=== PATIENT | female | born 1970 | race African-American/Black ===

== ENCOUNTER 2019-02-13 05:38 | Inpatient (IN) ==
[2019-02-09 15:45] LABS: Basophils % 0.5 % (0.0-0.8); Eosinophils # 0.2 10*3/uL (0.0-0.87); Hematocrit 33.3 VOL% (35.7-47.0); Hemoglobin 10.5 GM/DL (12.0-16.0); Immature Granulocytes % 0.2 %; Immature Granulocytes Absolute 0.01 #; Lymphocytes # 2.1 10*3/uL (1.4-4.0); Lymphocytes % 34.8 % (21.3-54.2); Mean Corpuscular HGB Conc 31.5 GM/DL (32-36); Mean Corpuscular Volume 85.8 FL (87-102); Mean Platelet Volume 10.9 FL (9.6-12.0); Monocytes % 9.5 % (1.7-12.7); Platelet Count 336 T/CUMM (130-400); Red Blood Count 3.88 MC/CUMM (3.8-5.5); Red Cell Distribution Width 15.9 % (9.3-17.3)
[2019-02-09 15:53] LABS: Apearance,Urine CLEAR (Clear); Bilirubin,Urine Negative (Negative); Blood, Urine Negative (Negative); Glucose,Urine (UA) Negative (Negative); Ketones,Urine Negative (Negative); Mucus,Urine Occasional /LPF (Occasional); Nitrite,Urine Negative (Negative); Protein,Urine Negative; RBC,Urine <1 /HPF (0-4); Squamous Epithelial Cell,Urine Occasional /HPF (0-10); Urine Color Yellow (Yellow); Urine Specific Gravity 1.013 (1.001-1.035); Urine Urobilinogen < 2.0 EU/DL (0.2-1.0); WBC,Urine <1 /HPF (0-6)
[2019-02-09 16:08] LABS: Alanine Aminotransferase 26 U/L (13-56); Albumin 3.7 G/DL (3.4-5.0); Alkaline Phosphatase 78 U/L (45-117); Aspartate Amino Transferase 21 U/L (0-37); Bilirubin,Total < 0.39 MG/DL (0.2-1.0); Blood Urea Nitrogen 13 MG/DL (7-18); Calcium 10.2 MG/DL (8.5-10.1); Estimated Glom Filtration Rate 107 ML/MIN; Glucose 86 MG/DL (74-106); HDL Cholesterol 72 MG/DL (40-60); Osmolality,Calculated 281.1 MOS/KG (273-304); Risk Ratio 2.28; Total Protein 7.6 G/DL (6.4-8.3); Triglycerides 70 MG/DL (2-150)
[2019-02-09 17:25] LABS: HIV Antigen/Antibody Result Nonreactive (Nonreactive)
[2019-02-13] MEDS ORDERED: DIAZEPAM 5 MG TABLET PO ONE (06:00)
[2019-02-13] MEDS ORDERED: FAMOTIDINE 20 MG TABLET PO ONE (06:00)
[2019-02-13] MEDS ORDERED: ACETAMINOPHEN 500 MG TABLET PO ONE (06:00)
[2019-02-13] MEDS ORDERED: LACTATED RINGERS 1,000 ML IV SCH (06:00)
[2019-02-13] MEDS ORDERED: AMPICILLIN/SULBACTAM 3,000 MG in SODIUM CHLORIDE 0.9% 100 ML IV ONE (06:30)
[2019-02-13] MEDS ORDERED: MICROFIBRILLAR COLLAGEN POWDER 1 GM CAN TOP ONE (06:31)
[2019-02-13] MEDS ORDERED: ACETAMINOPHEN 500 MG TABLET ONE (07:11)
[2019-02-13] MEDS ORDERED: FAMOTIDINE 20 MG TABLET ONE (07:11)
[2019-02-13] MEDS ORDERED: DIAZEPAM 5 MG TABLET ONE (07:11)
[2019-02-13] MEDS ORDERED: BUPIVACAINE 0.5% 50 ML VIAL ONE (07:17)
[2019-02-13] MEDS ORDERED: ceFAZolin 2,000 MG in PREMIX 1 EACH IV ONE (07:45)
[2019-02-13] MEDS ORDERED: ceFAZolin 1,000 MG VIAL ONE (07:46)
[2019-02-13 09:07] LABS: Apearance,Urine CLEAR (Clear); Bilirubin,Urine Negative (Negative); Blood, Urine Negative (Negative); Glucose,Urine (UA) Negative (Negative); Ketones,Urine Negative (Negative); Nitrite,Urine Negative (Negative); Protein,Urine Negative; RBC,Urine 1 /HPF (0-4); Squamous Epithelial Cell,Urine Occasional /HPF (0-10); Urine Color Colorless (Yellow); Urine Specific Gravity 1.003 (1.001-1.035); Urine Urobilinogen < 2.0 EU/DL (0.2-1.0); WBC,Urine <1 /HPF (0-6)
[2019-02-13] MEDS ORDERED: DESFLURANE 1 UNIT/15 MINUTE INH ONE (09:08)
[2019-02-13] MEDS ORDERED: SUFentanil 50 MCG/ML AMP ONE (09:08)
[2019-02-13] MEDS ORDERED: PROPOFOL 200 MG/20 ML VIAL IV ONE (09:08)
[2019-02-13] MEDS ORDERED: LIDOCAINE 2% 5 ML VIAL ONE (09:08)
[2019-02-13] MEDS ORDERED: NEOSTIGMINE 10 MG/10 ML VIAL ONE (09:09)
[2019-02-13] MEDS ORDERED: DEXAMETHASONE 4 MG/1 ML VIAL ONE (09:09)
[2019-02-13] MEDS ORDERED: GLYCOPYRROLATE 0.4 MG/2 ML VIAL ONE (09:09)
[2019-02-13] MEDS ORDERED: ROCURONIUM 100 MG/10 ML VIAL IV ONE (09:09)
[2019-02-13] MEDS ORDERED: ONDANSETRON 4 MG/2 ML VIAL ONE (09:09)
[2019-02-13] MEDS ORDERED: ePHEDrine 50 MG/ML AMP ONE (09:09)
[2019-02-13] MEDS ORDERED: LACTATED RINGERS 1,000 ML IV ONE (09:09)
[2019-02-13] MEDS ORDERED: ONDANSETRON 4 MG/2 ML VIAL IV PRN (09:17)
[2019-02-13] MEDS: HYDROmorphone 2 MG/1 ML VIAL IV PRN ×5 (09:19→21:34)
[2019-02-13] MEDS ORDERED: ACETAMINOPHEN 325 MG TABLET PO PRN (10:17)
[2019-02-13] MEDS ORDERED: BENZOCAINE/MENTHOL LOZENGE 18/BOX PO PRN (10:17)
[2019-02-13] MEDS ORDERED: MAGNESIUM HYDROXIDE SUSP 30 ML UDCUP PO PRN (10:17)
[2019-02-13] MEDS: LACTATED RINGERS 1,000 ML IV SCH ×2 (10:34→18:33)
[2019-02-13] MEDS ORDERED: INFLUENZA VIRUS VACCINE 0.5 ML SYRINGE IM ONE (11:55)
[2019-02-13] MEDS: ceFAZolin 1,000 MG in SYRINGE 1 EACH IV SCH ×2 (16:35→23:52)
[2019-02-13 18:26] LABS: Basophils % 0.1 % (0.0-0.8); Hematocrit 31.1 VOL% (35.7-47.0); Hemoglobin 9.8 GM/DL (12.0-16.0); Immature Granulocytes % 1.4 %; Immature Granulocytes Absolute 0.16 #; Lymphocytes # 1.4 10*3/uL (1.4-4.0); Lymphocytes % 11.9 % (21.3-54.2); Mean Corpuscular HGB Conc 31.5 GM/DL (32-36); Mean Corpuscular Volume 85.4 FL (87-102); Mean Platelet Volume 10.3 FL (9.6-12.0); Monocytes % 6.9 % (1.7-12.7); Neutrophils % 79.7 % (38.7-73.9); Platelet Count 272 T/CUMM (130-400); Red Blood Count 3.64 MC/CUMM (3.8-5.5); White Blood Count 11.6 T/CUMM (4-12)
[2019-02-13] MEDS: KETOROLAC 30 MG/1 ML VIAL IV PRN (21:28)
[2019-02-13] MEDS: SIMETHICONE CHEW 80 MG TABLET PO PRN (21:44)
[2019-02-13] MEDS: ONDANSETRON 4 MG/2 ML VIAL IV PRN (23:07)
[2019-02-14 05:53] LABS: Basophils % 0.4 % (0.0-0.8); Eosinophils # 0.1 10*3/uL (0.0-0.87); Eosinophils % 1.2 % (0.00-10.9); Hematocrit 29.5 VOL% (35.7-47.0); Hemoglobin 9.4 GM/DL (12.0-16.0); Immature Granulocytes % 0.4 %; Immature Granulocytes Absolute 0.03 #; Lymphocytes # 1.6 10*3/uL (1.4-4.0); Lymphocytes % 20.6 % (21.3-54.2); Mean Corpuscular HGB Conc 31.9 GM/DL (32-36); Mean Platelet Volume 11.3 FL (9.6-12.0); Monocytes % 12.2 % (1.7-12.7); Neutrophils % 65.2 % (38.7-73.9); Platelet Count 246 T/CUMM (130-400); Red Blood Count 3.51 MC/CUMM (3.8-5.5); Red Cell Distribution Width 15.9 % (9.3-17.3); White Blood Count 7.5 T/CUMM (4-12)
[2019-02-14] MEDS: METOCLOPRAMIDE 10 MG TABLET PO SCH ×3 (07:51→23:10)
[2019-02-14] MEDS: SIMETHICONE CHEW 80 MG TABLET PO PRN ×3 (07:51→22:33)
[2019-02-14] MEDS: IBUPROFEN 800 MG TABLET PO PRN (07:51)
[2019-02-14] MEDS: DOCUSATE SODIUM 100 MG CAPSULE PO PRN ×2 (07:53→19:48)
[2019-02-14] MEDS: FERROUS SULFATE 325 MG TABLET PO SCH ×2 (07:53→16:25)
[2019-02-14] MEDS ORDERED: POTASSIUM CHLORIDE 20 MEQ TABLET PO ONE (09:00)
[2019-02-14] MEDS: ONDANSETRON 4 MG/2 ML VIAL IV PRN (14:00)
[2019-02-14] MEDS: MAGNESIUM HYDROXIDE SUSP 30 ML UDCUP PO SCH ×3 (14:54→22:02)
[2019-02-14] MEDS: KETOROLAC 30 MG/1 ML VIAL IV PRN (19:51)
[2019-02-14] MEDS: BISACODYL 10 MG SUPP RECTAL PRN (22:33)
[2019-02-15] MEDS: ONDANSETRON 4 MG/2 ML VIAL IV PRN ×2 (02:26→18:25)
[2019-02-15] MEDS: KETOROLAC 30 MG/1 ML VIAL IV PRN (02:42)
[2019-02-15] MEDS ORDERED: METOCLOPRAMIDE 10 MG/2 ML VIAL ONE (12:54)
[2019-02-15] MEDS: LACTATED RINGERS 1,000 ML IV SCH ×3 (13:00→21:11)
[2019-02-15] MEDS: METOCLOPRAMIDE 10 MG/2 ML VIAL IV SCH ×2 (13:05→21:13)
[2019-02-15] MEDS ORDERED: PROMETHAZINE 25 MG/1 ML VIAL IM PRN (15:49)
[2019-02-15] MEDS: MEPERIDINE 25 MG/1 ML VIAL IV PRN ×2 (18:17→23:58)
[2019-02-15] MEDS: FERROUS SULFATE 325 MG TABLET PO SCH (19:23)
[2019-02-15] MEDS: MAGNESIUM HYDROXIDE SUSP 30 ML UDCUP PO SCH ×2 (19:23→21:12)
[2019-02-15] MEDS: DOCUSATE SODIUM 100 MG CAPSULE PO PRN (21:13)
[2019-02-15] MEDS: SIMETHICONE CHEW 80 MG TABLET PO PRN (21:13)
[2019-02-15] MEDS: BISACODYL 10 MG SUPP RECTAL PRN (22:22)
[2019-02-16] MEDS: ONDANSETRON 4 MG/2 ML VIAL IV PRN ×2 (03:57→21:52)
[2019-02-16] MEDS: KETOROLAC 30 MG/1 ML VIAL IV PRN (04:34)
[2019-02-16] MEDS: METOCLOPRAMIDE 10 MG/2 ML VIAL IV SCH ×3 (04:37→21:48)
[2019-02-16] MEDS: LACTATED RINGERS 1,000 ML IV SCH (06:02)
[2019-02-16 06:35] LABS: Albumin 2.8 G/DL (3.4-5.0); Bilirubin,Total 0.6 MG/DL (0.2-1.0); Calcium 10.2 MG/DL (8.5-10.1); Osmolality,Calculated 277.4 MOS/KG (273-304)
[2019-02-16] MEDS ORDERED: MAGNESIUM CITRATE 300 ML BOTTLE PO ONE (07:13)
[2019-02-16] MEDS: DEXT 5% LACT RING KCL 20 MEQ 20 MEQ/1,000 ML BAG IV SCH ×2 (08:13→15:56)
[2019-02-16] MEDS: PANTOPRAZOLE 40 MG VIAL IV SCH ×2 (08:48→21:45)
[2019-02-16] MEDS: FERROUS SULFATE 325 MG TABLET PO SCH (08:49)
[2019-02-16] MEDS: DOCUSATE SODIUM 100 MG CAPSULE PO PRN (08:50)
[2019-02-16] MEDS: MAGNESIUM HYDROXIDE SUSP 30 ML UDCUP PO SCH ×2 (08:51→21:59)
[2019-02-16] MEDS ORDERED: hydroCHLOROthiazide 25 MG TABLET PO SCH (17:00)
[2019-02-16] MEDS: SIMETHICONE CHEW 80 MG TABLET PO PRN (22:00)
[2019-02-17] MEDS: DEXT 5% LACT RING KCL 20 MEQ 20 MEQ/1,000 ML BAG IV SCH ×3 (01:51→23:48)
[2019-02-17] MEDS: MEPERIDINE 25 MG/1 ML VIAL IV PRN (04:00)
[2019-02-17] MEDS: METOCLOPRAMIDE 10 MG/2 ML VIAL IV SCH (06:10)
[2019-02-17] MEDS: BISACODYL 10 MG SUPP RECTAL PRN (07:52)
[2019-02-17] MEDS: MAGNESIUM HYDROXIDE SUSP 30 ML UDCUP PO SCH (07:52)
[2019-02-17] MEDS ORDERED: amLODIPine 5 MG TABLET PO SCH (09:00)
[2019-02-17] MEDS: FERROUS SULFATE 325 MG TABLET PO SCH (09:13)
[2019-02-17] MEDS ORDERED: MAGNESIUM CITRATE 300 ML BOTTLE PO ONE (09:13)
[2019-02-17] MEDS ORDERED: hydrALAZINE 20 MG/1 ML VIAL IV PRN (11:36)
[2019-02-17] MEDS ORDERED: amLODIPine 5 MG TABLET PO ONE (11:38)
[2019-02-17 11:50] LABS: Albumin 2.9 G/DL (3.4-5.0); Bilirubin,Total 0.4 MG/DL (0.2-1.0); Calcium 10.8 MG/DL (8.5-10.1); Osmolality,Calculated 272.7 MOS/KG (273-304); Total Protein 7.2 G/DL (6.4-8.3)
[2019-02-17] MEDS: ONDANSETRON 4 MG/2 ML VIAL IV PRN ×2 (13:12→21:05)
[2019-02-17] MEDS ORDERED: MAGNESIUM SULF RIDER 2 GM in PREMIX 1 EACH IV ONE (13:42)
[2019-02-17] MEDS: SIMETHICONE CHEW 80 MG TABLET PO PRN ×2 (14:45→22:29)
[2019-02-17] MEDS: NICOTINE 21 MG/24 HR PATCH TRANSDERM SCH (15:26)
[2019-02-17] MEDS: POTASSIUM CHLORIDE RIDER 10 MEQ in PREMIX 1 EACH IV PRN ×5 (16:29→21:13)
[2019-02-17] MEDS: PANTOPRAZOLE 40 MG VIAL IV SCH (18:30)
[2019-02-17] MEDS: carvediloL 6.25 MG TABLET PO SCH (21:48)
[2019-02-17] MEDS: IBUPROFEN 800 MG TABLET PO PRN (23:55)
[2019-02-18] MEDS: ceFAZolin 2,000 MG in PREMIX 1 EACH IV SCH ×3 (02:43→13:44)
[2019-02-18 05:52] LABS: Basophils % 0.4 % (0.0-0.8); Eosinophils # 0.3 10*3/uL (0.0-0.87); Eosinophils % 3.3 % (0.00-10.9); Hematocrit 35.8 VOL% (35.7-47.0); Hemoglobin 11.4 GM/DL (12.0-16.0); Immature Granulocytes % 0.3 %; Immature Granulocytes Absolute 0.03 #; Lymphocytes # 1.3 10*3/uL (1.4-4.0); Lymphocytes % 12.8 % (21.3-54.2); Mean Corpuscular HGB Conc 31.8 GM/DL (32-36); Mean Corpuscular Volume 82.7 FL (87-102); Mean Platelet Volume 12.1 FL (9.6-12.0); Monocytes % 15.1 % (1.7-12.7); Neutrophils % 68.1 % (38.7-73.9); Platelet Count 312 T/CUMM (130-400); Red Blood Count 4.33 MC/CUMM (3.8-5.5); Red Cell Distribution Width 15.9 % (9.3-17.3); White Blood Count 10.4 T/CUMM (4-12)
[2019-02-18 06:15] LABS: Alanine Aminotransferase 28 U/L (13-56); Albumin 2.8 G/DL (3.4-5.0); Alkaline Phosphatase 77 U/L (45-117); Aspartate Amino Transferase 26 U/L (0-37); Bilirubin,Total < 0.39 MG/DL (0.2-1.0); Blood Urea Nitrogen 10 MG/DL (7-18); Calcium 10.4 MG/DL (8.5-10.1); Estimated Glom Filtration Rate 93 ML/MIN; Glucose 93 MG/DL (74-106); Osmolality,Calculated 271.8 MOS/KG (273-304); Total Protein 7.2 G/DL (6.4-8.3)
[2019-02-18] MEDS: ONDANSETRON 4 MG/2 ML VIAL IV PRN ×2 (07:45→22:11)
[2019-02-18] MEDS: amLODIPine 10 MG TABLET PO SCH (08:29)
[2019-02-18] MEDS: carvediloL 6.25 MG TABLET PO SCH ×2 (08:29→23:13)
[2019-02-18] MEDS: DOCUSATE SODIUM 100 MG CAPSULE PO PRN (08:29)
[2019-02-18] MEDS: hydroCHLOROthiazide 25 MG TABLET PO SCH (08:29)
[2019-02-18] MEDS: FERROUS SULFATE 325 MG TABLET PO SCH (08:31)
[2019-02-18] MEDS ORDERED: POTASSIUM CHLORIDE 10 MEQ TABLET PO SCH (09:00)
[2019-02-18] MEDS: LACTATED RINGERS 1,000 ML IV SCH ×2 (09:01→23:16)
[2019-02-18] MEDS: PANTOPRAZOLE 40 MG VIAL IV SCH (10:03)
[2019-02-18] MEDS: SIMETHICONE CHEW 80 MG TABLET PO PRN (17:17)
[2019-02-19] MEDS: ONDANSETRON 4 MG/2 ML VIAL IV PRN ×2 (08:50→19:54)
[2019-02-19] MEDS: hydroCHLOROthiazide 25 MG TABLET PO SCH (09:15)
[2019-02-19] MEDS: amLODIPine 10 MG TABLET PO SCH (09:15)
[2019-02-19] MEDS: carvediloL 6.25 MG TABLET PO SCH ×2 (09:15→20:15)
[2019-02-19] MEDS: DOCUSATE SODIUM 100 MG CAPSULE PO PRN ×2 (09:15→21:44)
[2019-02-19] MEDS: METOCLOPRAMIDE 10 MG/2 ML VIAL IV SCH ×4 (09:20→21:42)
[2019-02-19] MEDS: LACTATED RINGERS 1,000 ML IV SCH ×2 (09:26→18:55)
[2019-02-19] MEDS: PANTOPRAZOLE 40 MG VIAL IV SCH ×2 (09:31→20:11)
[2019-02-19] MEDS: BISACODYL 10 MG SUPP RECTAL PRN (12:30)
[2019-02-19] MEDS: NICOTINE 21 MG/24 HR PATCH TRANSDERM SCH (13:00)
[2019-02-19] MEDS: FERROUS SULFATE 325 MG TABLET PO SCH (13:00)
[2019-02-19] MEDS: IBUPROFEN 800 MG TABLET PO PRN (21:42)
[2019-02-20] MEDS: METOCLOPRAMIDE 10 MG/2 ML VIAL IV SCH ×3 (01:06→12:01)
[2019-02-20] MEDS: LACTATED RINGERS 1,000 ML IV SCH (04:05)
[2019-02-20] MEDS: hydroCHLOROthiazide 25 MG TABLET PO SCH (08:42)
[2019-02-20] MEDS: carvediloL 6.25 MG TABLET PO SCH (08:43)
[2019-02-20] MEDS: DOCUSATE SODIUM 100 MG CAPSULE PO PRN (08:43)
[2019-02-20] MEDS: PANTOPRAZOLE 40 MG VIAL IV SCH (08:43)
[2019-02-20] MEDS: amLODIPine 10 MG TABLET PO SCH (08:43)
[2019-02-20 14:21] VITALS: BP 150/89
== END 2019-02-20 13:40 | disposition home or self-care (01) | DRG 742 ==
LOC: N.SDSINP 05:38 → N.OB 09:55
PROVIDERS: ADMIT Obstetrics & Gynecology; ATTEND Obstetrics & Gynecology

== ENCOUNTER 2019-02-25 21:30 | Inpatient (IN) ==
[2019-02-26] MEDS ORDERED: HYDROmorphone 2 MG/1 ML VIAL IV STA (00:24)
[2019-02-26] MEDS ORDERED: ONDANSETRON 4 MG/2 ML VIAL IV STA (00:24)
[2019-02-26] MEDS ORDERED: SODIUM CHLORIDE 0.9% 500 ML IV STA (00:24)
[2019-02-26 01:18] LABS: Basophils % 0.4 % (0.0-0.8); Eosinophils # 0.1 10*3/uL (0.0-0.87); Eosinophils % 1.5 % (0.00-10.9); Hematocrit 35.1 VOL% (35.7-47.0); Hemoglobin 11.2 GM/DL (12.0-16.0); Immature Granulocytes % 0.7 %; Immature Granulocytes Absolute 0.06 #; Lymphocytes # 1.7 10*3/uL (1.4-4.0); Mean Corpuscular HGB Conc 31.9 GM/DL (32-36); Mean Corpuscular Volume 82.8 FL (87-102); Mean Platelet Volume 11.6 FL (9.6-12.0); Monocytes % 9.1 % (1.7-12.7); Neutrophils % 70.3 % (38.7-73.9); Platelet Count 413 T/CUMM (130-400); Red Blood Count 4.24 MC/CUMM (3.8-5.5); Red Cell Distribution Width 17.2 % (9.3-17.3); White Blood Count 9.2 T/CUMM (4-12)
[2019-02-26 01:33] LABS: Alanine Aminotransferase 93 U/L (13-56); Albumin 3.2 G/DL (3.4-5.0); Alkaline Phosphatase 79 U/L (45-117); Amylase 44 U/L (25-115); Aspartate Amino Transferase 41 U/L (0-37); Bilirubin,Total < 0.39 MG/DL (0.2-1.0); Blood Urea Nitrogen 6 MG/DL (7-18); Calcium 10.9 MG/DL (8.5-10.1); Estimated Glom Filtration Rate 125 ML/MIN; Glucose 106 MG/DL (74-106); Osmolality,Calculated 272.7 MOS/KG (273-304); Total Protein 8.1 G/DL (6.4-8.3)
[2019-02-26 01:50] LABS: Apearance,Urine Slightly Hazy (Clear); Bilirubin,Urine Negative (Negative); Blood, Urine Negative (Negative); Glucose,Urine (UA) Negative (Negative); Ketones,Urine Negative (Negative); Mucus,Urine Occasional /LPF (Occasional); Nitrite,Urine Negative (Negative); Protein,Urine Negative; RBC,Urine 3 /HPF (0-4); Squamous Epithelial Cell,Urine Few /HPF (0-10); Urine Color Yellow (Yellow); Urine Specific Gravity 1.006 (1.001-1.035); Urine Urobilinogen < 2.0 EU/DL (0.2-1.0); WBC,Urine 5 /HPF (0-6)
[2019-02-26] MEDS ORDERED: POTASSIUM CHLORIDE RIDER 10 MEQ in PREMIX 1 EACH IV ONE ×2 (02:11→04:15)
[2019-02-26] MEDS ORDERED: MAGNESIUM SULF RIDER 2 GM in PREMIX 1 EACH IV STA (02:11)
[2019-02-26] MEDS ORDERED: POTASSIUM CHLORIDE 20 MEQ TABLET PO STA (02:11)
[2019-02-26] MEDS ORDERED: hydrALAZINE 20 MG/1 ML VIAL IV ONE (03:49)
[2019-02-26] MEDS ORDERED: hydrALAZINE 20 MG/1 ML VIAL ONE (03:49)
[2019-02-26] MEDS ORDERED: MAGNESIUM HYDROXIDE SUSP 30 ML UDCUP PO PRN (04:26)
[2019-02-26] MEDS ORDERED: POTASSIUM CHLORIDE RIDER 20 MEQ in PREMIX 1 EACH IV PRN (04:26)
[2019-02-26] MEDS ORDERED: hydrALAZINE 20 MG/1 ML VIAL IV PRN (04:26)
[2019-02-26] MEDS ORDERED: BISACODYL 10 MG SUPP RECTAL PRN (04:26)
[2019-02-26] MEDS ORDERED: HYDROmorphone 2 MG/1 ML VIAL IV PRN (04:26)
[2019-02-26] MEDS ORDERED: DOCUSATE SODIUM 100 MG CAPSULE PO PRN (04:26)
[2019-02-26] MEDS ORDERED: POTASSIUM CHLORIDE INJ 10 MEQ in SODIUM CHLORIDE 0.9% 1,000 ML IV SCH (04:30)
[2019-02-26] MEDS: SODIUM CHLORIDE 0.9% 1,000 ML IV SCH ×3 (07:27→16:20)
[2019-02-26] MEDS: ONDANSETRON 4 MG/2 ML VIAL IV PRN ×2 (07:35→13:28)
[2019-02-26] MEDS ORDERED: FERROUS SULFATE 325 MG TABLET PO SCH (09:00)
[2019-02-26] MEDS: FERROUS SULFATE 325 MG TABLET PO SCH (09:29)
[2019-02-26] MEDS: DOCUSATE SODIUM 100 MG CAPSULE PO SCH ×2 (09:29→20:16)
[2019-02-26] MEDS: hydroCHLOROthiazide 25 MG TABLET PO SCH (09:29)
[2019-02-26] MEDS: carvediloL 6.25 MG TABLET PO SCH ×2 (09:29→16:22)
[2019-02-26] MEDS: PANTOPRAZOLE 40 MG VIAL IV SCH (09:56)
[2019-02-26 11:48] LABS: Calcium 9.9 MG/DL (8.5-10.1); Osmolality,Calculated 278.3 MOS/KG (273-304)
[2019-02-26] MEDS: POTASSIUM CHLORIDE RIDER 10 MEQ in PREMIX 1 EACH IV PRN ×5 (13:27→17:57)
[2019-02-27] MEDS: SODIUM CHLORIDE 0.9% 1,000 ML IV SCH ×4 (00:45→23:26)
[2019-02-27 05:33] LABS: Basophils % 0.4 % (0.0-0.8); Eosinophils # 0.2 10*3/uL (0.0-0.87); Eosinophils % 2.1 % (0.00-10.9); Hematocrit 31.2 VOL% (35.7-47.0); Hemoglobin 9.9 GM/DL (12.0-16.0); Immature Granulocytes % 0.3 %; Immature Granulocytes Absolute 0.02 #; Lymphocytes # 1.7 10*3/uL (1.4-4.0); Lymphocytes % 23.1 % (21.3-54.2); Mean Corpuscular HGB Conc 31.7 GM/DL (32-36); Mean Corpuscular Volume 84.6 FL (87-102); Mean Platelet Volume 11.2 FL (9.6-12.0); Monocytes % 9.8 % (1.7-12.7); Neutrophils % 64.3 % (38.7-73.9); Platelet Count 391 T/CUMM (130-400); Red Blood Count 3.69 MC/CUMM (3.8-5.5); Red Cell Distribution Width 17.4 % (9.3-17.3); White Blood Count 7.5 T/CUMM (4-12)
[2019-02-27 05:51] LABS: Albumin 2.7 G/DL (3.4-5.0); Bilirubin,Total 0.5 MG/DL (0.2-1.0); Calcium 9.5 MG/DL (8.5-10.1); Total Protein 6.6 G/DL (6.4-8.3)
[2019-02-27] MEDS: FERROUS SULFATE 325 MG TABLET PO SCH (10:15)
[2019-02-27] MEDS: hydroCHLOROthiazide 25 MG TABLET PO SCH (10:15)
[2019-02-27] MEDS: carvediloL 6.25 MG TABLET PO SCH ×2 (10:15→17:05)
[2019-02-27] MEDS: DOCUSATE SODIUM 100 MG CAPSULE PO SCH ×2 (10:16→21:23)
[2019-02-27] MEDS: PANTOPRAZOLE 40 MG VIAL IV SCH (10:16)
[2019-02-27] MEDS: POTASSIUM CHLORIDE RIDER 10 MEQ in PREMIX 1 EACH IV PRN ×3 (10:32→23:57)
[2019-02-28] MEDS: DOCUSATE SODIUM 100 MG CAPSULE PO SCH ×2 (10:05→21:12)
[2019-02-28] MEDS: carvediloL 6.25 MG TABLET PO SCH ×2 (10:05→16:26)
[2019-02-28] MEDS: FERROUS SULFATE 325 MG TABLET PO SCH (10:05)
[2019-02-28] MEDS: PANTOPRAZOLE 40 MG VIAL IV SCH (10:05)
[2019-02-28] MEDS: hydroCHLOROthiazide 25 MG TABLET PO SCH (10:05)
[2019-02-28] MEDS: POTASSIUM CHLORIDE RIDER 10 MEQ in PREMIX 1 EACH IV PRN ×4 (11:00→19:08)
[2019-02-28] MEDS: SODIUM CHLORIDE 0.9% 1,000 ML IV SCH ×3 (13:39→23:53)
[2019-03-01] MEDS: SODIUM CHLORIDE 0.9% 1,000 ML IV SCH (05:55)
[2019-03-01] MEDS: DOCUSATE SODIUM 100 MG CAPSULE PO SCH ×2 (08:08→21:18)
[2019-03-01] MEDS: hydroCHLOROthiazide 25 MG TABLET PO SCH (08:08)
[2019-03-01] MEDS: carvediloL 6.25 MG TABLET PO SCH ×2 (08:08→17:39)
[2019-03-01] MEDS: FERROUS SULFATE 325 MG TABLET PO SCH (08:09)
[2019-03-01] MEDS: PANTOPRAZOLE 40 MG VIAL IV SCH (08:09)
[2019-03-01] MEDS: POTASSIUM CHLORIDE RIDER 10 MEQ in PREMIX 1 EACH IV PRN (08:11)
[2019-03-01] MEDS: POTASSIUM CHLORIDE 20 MEQ TABLET PO PRN ×2 (13:26→13:27)
[2019-03-02] MEDS: carvediloL 6.25 MG TABLET PO SCH (08:48)
[2019-03-02] MEDS: hydroCHLOROthiazide 25 MG TABLET PO SCH (08:48)
[2019-03-02] MEDS: DOCUSATE SODIUM 100 MG CAPSULE PO SCH (08:49)
[2019-03-02] MEDS: PANTOPRAZOLE 40 MG VIAL IV SCH (08:50)
[2019-03-02] MEDS: FERROUS SULFATE 325 MG TABLET PO SCH (08:50)
[2019-03-02 12:23] VITALS: BP 158/96
== END 2019-03-02 13:00 | disposition home or self-care (01) | DRG 394 ==
LOC: N.ED 21:30 → N.EDINP 02-26 02:42 → N.3E 02-26 02:58
PROVIDERS: ADMIT Obstetrics & Gynecology; ATTEND Obstetrics & Gynecology